=== PATIENT | male | born 1990 | race African-American/Black ===

== ENCOUNTER 2019-08-07 22:08 | Emergency (ER) | payer MEDICAID, OTHER ==
[~2019-08-07] VITALS: Ht 182.9 cm; Wt 170.1 kg
[2019-08-07] MEDS ORDERED: CALCIUM CHLOR(10%) 100MG/ML 10ML SYRINGE IV ONE (22:15)
[2019-08-07] MEDS ORDERED: EPINEPHrine HCL 1 MG/10 ML SYRG IV ONE ×3 (22:15)
[2019-08-07] MEDS ORDERED: DEXTROSE (50%) 50ML SYRG IV ONE (22:15)
[2019-08-07] MEDS ORDERED: SODIUM BICARBONATE 8.4% INJ 50ML SYRINGE IV ONE ×3 (22:15)
[2019-08-07 23:05] LABS: Basophils # (auto) 0.1 10 ^3/uL (0-0.2); Basophils % (auto) 0.9 % (0.0-2.0); Eosinophils # (auto) 0.1 10 ^3/uL (0-0.8); Eosinophils % (auto) 0.5 % (0.0-7.0); Hematocrit 29.9 % (41.0-53.0); Hemoglobin 8.5 g/dL (13.5-17.5); Lymphocytes # (auto) 1.2 10 ^3/uL (0.4-5.4); Lymphocytes % (auto) 10.6 % (10.0-50.0); Mean Corpuscular Hemoglobin 18.7 pg (28.0-32.0); Mean Corpuscular Hgb Conc. 28.5 g/dL (32.0-36.0); Mean Corpuscular Volume 65.5 fL (80.0-100.0); Monocytes # (auto) 1.3 10 ^3/uL (0-1.3); Monocytes % (auto) 11.3 % (0.0-12.0); Neutrophils # (auto) 9.1 10 ^3/uL (1.6-8.6); Neutrophils % (auto) 76.7 % (37.0-80.0); Platelet Count (auto) 381 10^3/uL (140-450); Red Blood Cells 4.57 10^6/uL (4.5-5.90); White Blood Cell 11.8 10^3/uL (4.4-10.8)
[2019-08-07 23:06] LABS: Nucleated Red Blood Cells % 9.9 %; Red Cell Distribution Width 23.1 % (11.8-14.3)
[2019-08-07 23:21] LABS: INR 2.52 (0.9-1.15); Partial Thromboplastin Time 32.6 sec (23.64-32.05)
[2019-08-07 23:26] LABS: Albumin 2.8 g/dL (3.4-5.0); Calcium 8.1 mg/dL (8.5-10.1); Magnesium 2.4 mg/dL (1.6-2.6); Potassium 4.8 mmol/L (3.5-5.1)
[2019-08-07 23:28] LABS: BUN/Creatinine Ratio 24.3
[2019-08-07 23:33] LABS: Bilirubin, Total 3.7 mg/dL (0.2-1.0); Total Protein 7.2 g/dL (6.4-8.2)
[2019-08-07] MEDS ORDERED: AZITHROMYCIN 500MG/ 250ML 250 ML IV ONE (23:45)
[2019-08-07] MEDS ORDERED: cefTRIAXone 1GM/50ML D5W 50 ML IV ONE (23:45)
[2019-08-08] MEDS ORDERED: PROMETHAZINE HCL 25 MG/ML 1ML IV ONE (00:15)
[2019-08-08] MEDS ORDERED: diphenhdrAMINE HCL 50 MG/1 ML VL IV ONE ×2 (01:00→01:15)
[2019-08-08] MEDS ORDERED: DEXTROSE 50% SYRINGE 50 ML IV ONE ×3 (01:41→02:33)
[2019-08-08] MEDS ORDERED: PROPOFOL 100 ML IV ONE (02:04)
[2019-08-08] MEDS ORDERED: PROPOFOL 100 ML IV SCH (02:24)
[2019-08-08] MEDS ORDERED: DEXTROSE 50% SYRINGE 100 ML IV ONE (02:37)
[2019-08-08 02:42] LABS: Lactic Acid w/Reflex 8.9 mmol/L (0.4-2.0)
[2019-08-08 02:46] VITALS: BP 156/71
== END 2019-08-08 12:47 | disposition expired ==
LOC: EDBD 22:08 → ER 22:14
DX: I46.9 Cardiac arrest, cause unspecified (principal); J18.9 Pneumonia, unspecified organism; I21.A1 Myocardial infarction type 2; R74.8 Abnormal levels of other serum enzymes; K80.20 Calculus of gallbladder without cholecystitis without obstruction; I13.0 Hypertensive heart and chronic kidney disease with heart failure and stage 1 through stage 4 chronic kidney disease, or unspecified chronic kidney disease; N18.9 Chronic kidney disease, unspecified; I50.9 Heart failure, unspecified; K21.9 Gastro-esophageal reflux disease without esophagitis; Z20.828 Contact with and (suspected) exposure to other viral communicable diseases
CPT/HCPCS: 31500; 36415; 36600; 71045; 74176; 76705; 80053; 82140; 82150; 82805; 82962; 83605; 83690; 83735; 83880; 84484; 85025; 85610; 85730; 87040; 87070; 87077; 87205; 87804; 87880; 92950; 93005; 96365; 96368; 96375; 99291; C9803; J0171; J0456; J0696; J2550; J2704; J7042; U0003; 94002